=== PATIENT | male | born 1960 | race Caucasian/White ===

== ENCOUNTER 2017-12-29 12:55 | Inpatient (IN) | payer MEDICAID ==
[~2017-12-29] VITALS: Ht 175.3 cm; Wt 98.0 kg
[~2017-12-29 12:55] MED LIST: ASPI-621 PO; ATOR10TA PO; CARV6.2512 PO; ENAL2.5T32 PO; TICA90TA PO
[2017-12-29] MEDS ORDERED: SODIUM CHLORIDE FLUSH 10ML SYR IVF ONE (14:00)
[2017-12-29] MEDS ORDERED: ASPIRIN 81 MG TABLET CHEW PO ONE (14:04)
[2017-12-29] MEDS ORDERED: ASPIRIN 81 MG TABLET CHEW ONE (14:06)
[2017-12-29 14:29] LABS: BASOPHILS # (AUTO) 0.06 x10^3/uL (0-0.1); BASOPHILS % (AUTO) 1 % (0-1); EOSINOPHILS # (AUTO) 0.13 x10^3/uL (0-0.4); EOSINOPHILS % (AUTO) 1 % (1-7); LYMPHOCYTES # (AUTO) 1.55 x10^3/uL (1-3.4); LYMPHOCYTES % (AUTO) 12 % (22-44); MD NO; MEAN CORPUSCULAR HEMOGLOBIN 30.4 pg (27.5-34.5); MEAN CORPUSCULAR HGB CONC 33.3 g/dL (33.2-36.2); MEAN CORPUSCULAR VOLUME 91.1 fL (81-97); MEAN PLATELET VOLUME 9.2 fL (7.4-10.4); MONOCYTES # (AUTO) 0.89 x10^3/uL (0.2-0.8); MONOCYTES % (AUTO) 7 % (2-9); NEUTROPHILS # (AUTO) 10.17 x10^3/uL (1.8-6.8); NEUTROPHILS % (AUTO) 79 % (42-75); PLATELET COUNT 248 x10^3/uL (130-400); RED BLOOD COUNT 4.84 x10^6/uL (4.38-5.82); RED CELL DISTRIBUTION WIDTH 13.4 % (9.4-14.8)
[2017-12-29 14:41] LABS: ALANINE AMINOTRANSFERASE 33 U/L (12-78); ALBUMIN 3.4 g/dL (3.4-5.0); ANION GAP 9 mmol/L (5-15); CALCIUM 8.4 mg/dL (8.5-10.1); CHLORIDE 113 mmol/L (98-107); CREATININE 1.45 mg/dL (0.7-1.3)
[2017-12-29 14:46] LABS: ALKALINE PHOSPHATASE 93 U/L (45-117); BILIRUBIN,TOTAL 0.5 mg/dL (0.2-1.0); TOTAL PROTEIN 7.1 g/dL (6.4-8.2); TROPONIN I 0.082 ng/mL (0.000-0.045)
[2017-12-29] MEDS ORDERED: OMNIPAQUE 350 MG/ML, 100ML BOTTLE ONE (16:37)
[2017-12-29] MEDS ORDERED: HEPARIN 5,000 UNITS/ML, 1ML IV ONE (17:00)
[2017-12-29] MEDS ORDERED: HEPARIN 25,000 UNITS/500ML PMX 500 ML ONE (17:15)
[2017-12-29] MEDS ORDERED: HEPARIN 5,000 UNITS/ML, 1ML ONE (17:15)
[2017-12-29] MEDS: HEPARIN 25,000 UNITS/500ML PMX 500 ML IV PRN (17:22)
[2017-12-29] MEDS ORDERED: CETI10TA24 PO (18:01)
[2017-12-29] MEDS ORDERED: ONDANSETRON ODT 4 MG PO PRN (18:30)
[2017-12-29] MEDS ORDERED: BISACODYL 10 MG SUPP PR PRN (18:30)
[2017-12-29] MEDS ORDERED: DOCUSATE 100 MG CAPSULE PO PRN (18:30)
[2017-12-29] MEDS ORDERED: PROMETHAZINE 25 MG/ML, 1ML IM PRN (18:30)
[2017-12-29] MEDS ORDERED: morphine SULFATE 10 MG/ML, 1ML IVPush PRN (18:30)
[2017-12-29] MEDS ORDERED: OXYcodone IR 5MG TABLET PO PRN (18:30)
[2017-12-29] MEDS ORDERED: ONDANSETRON 2MG/ML, 2ML IVPush PRN (18:30)
[2017-12-29] MEDS ORDERED: POLYETHYLENE GLYCOL 17 GM PACKET PO PRN (18:30)
[2017-12-29] MEDS ORDERED: hydrALAzine 20 MG/ML, 1ML IVPush PRN (18:30)
[2017-12-29 18:57] VITALS: BP 135/99
[2017-12-29 19:25] LABS: HEMOGLOBIN A1C 5.7 % (4.2-6.3)
[2017-12-29 19:26] LABS: FREE T4 (FREE THYROXINE) 1.28 ng/dL (0.76-1.46); THYROID STIMULATING HORMONE 1.97 mIU/L (0.358-3.740)
[2017-12-29 19:38] LABS: MICROSCOPIC NOT IND
[2017-12-29 19:42] LABS: CULTURE INDICATED? NO
[2017-12-29] MEDS: SODIUM CHLORIDE 0.9% 1,000 ML IV SCH (21:51)
[2017-12-29] MEDS: ACETAMINOPHEN 325 MG TABLET PO PRN (22:42)
[2017-12-30] MEDS: HEPARIN 5,000 UNITS/ML, 1ML IV PRN ×4 (00:15→21:41)
[2017-12-30 00:53] VITALS: BP 137/85
[2017-12-30 00:54] VITALS: BP 137/85
[2017-12-30] MEDS: ASPIRIN 81 MG TABLET EC PO SCH (05:51)
[2017-12-30 06:32] LABS: BASOPHILS % (AUTO) 1 % (0-1); EOSINOPHILS # (AUTO) 0.26 x10^3/uL (0-0.4); EOSINOPHILS % (AUTO) 2 % (1-7); LYMPHOCYTES # (AUTO) 2.44 x10^3/uL (1-3.4); LYMPHOCYTES % (AUTO) 22 % (22-44); MD NO; MEAN CORPUSCULAR HEMOGLOBIN 30.4 pg (27.5-34.5); MEAN CORPUSCULAR HGB CONC 33.4 g/dL (33.2-36.2); MEAN CORPUSCULAR VOLUME 91.1 fL (81-97); MEAN PLATELET VOLUME 9.4 fL (7.4-10.4); MONOCYTES # (AUTO) 0.84 x10^3/uL (0.2-0.8); MONOCYTES % (AUTO) 8 % (2-9); NEUTROPHILS # (AUTO) 7.64 x10^3/uL (1.8-6.8); NEUTROPHILS % (AUTO) 68 % (42-75); PLATELET COUNT 258 x10^3/uL (130-400); RED BLOOD COUNT 4.83 x10^6/uL (4.38-5.82); RED CELL DISTRIBUTION WIDTH 13.2 % (9.4-14.8)
[2017-12-30 06:40] LABS: ALANINE AMINOTRANSFERASE 30 U/L (12-78); ALBUMIN 3.1 g/dL (3.4-5.0); ANION GAP 11 mmol/L (5-15); CALCIUM 8.1 mg/dL (8.5-10.1); CHLORIDE 112 mmol/L (98-107); CHOLESTEROL, TOTAL 126 mg/dL (140-239); CREATININE 1.37 mg/dL (0.7-1.3)
[2017-12-30 06:45] LABS: ALKALINE PHOSPHATASE 86 U/L (45-117); BILIRUBIN,TOTAL 0.6 mg/dL (0.2-1.0); CHOL/HDL RATIO 4.5; HDL CHOL % 22 % (26-37); HDL CHOLESTEROL (DIRECT) 28 mg/dL (40-60); LDL CHOLESTEROL,CALCULATED 76 mg/dL (54-169); LDL/HDL RATIO 2.7 (0.5-3.0); TOTAL PROTEIN 6.7 g/dL (6.4-8.2); TRIGLYCERIDES 109 mg/dL (50-200); TROPONIN I 0.048 ng/mL (0.000-0.045); VLDL CHOLESTEROL 22 mg/dL (0-25)
[2017-12-30 07:15] VITALS: BP 130/80
[2017-12-30] MEDS: SODIUM CHLORIDE 0.9% 1,000 ML IV SCH (08:42)
[2017-12-30] MEDS: CETIRIZINE 10 MG TABLET PO SCH (08:42)
[2017-12-30] MEDS: HEPARIN 25,000 UNITS/500ML PMX 500 ML IV PRN (14:24)
[2017-12-30 14:28] VITALS: BP 94/58
[2017-12-30 18:48] VITALS: BP 150/91
[2017-12-30] MEDS: ACETAMINOPHEN 325 MG TABLET PO PRN (19:40)
[2017-12-31 01:12] VITALS: BP 133/88
[2017-12-31 04:41] LABS: ANION GAP 7 mmol/L (5-15); CALCIUM 8.3 mg/dL (8.5-10.1); CHLORIDE 111 mmol/L (98-107); CREATININE 1.33 mg/dL (0.7-1.3)
[2017-12-31] MEDS: ASPIRIN 81 MG TABLET EC PO SCH (05:46)
[2017-12-31] MEDS: HEPARIN 25,000 UNITS/500ML PMX 500 ML IV PRN ×2 (07:19→23:35)
[2017-12-31 07:40] VITALS: BP 124/80
[2017-12-31] MEDS: CETIRIZINE 10 MG TABLET PO SCH (10:50)
[2017-12-31 13:55] VITALS: BP 136/78
[2017-12-31 19:41] VITALS: BP 155/93
[2017-12-31] MEDS: TEMAZEPAM 15 MG CAPSULE PO PRN (19:46)
[2018-01-01 00:41] VITALS: BP 125/78
[2018-01-01 05:19] LABS: ANION GAP 8 mmol/L (5-15); CALCIUM 8.4 mg/dL (8.5-10.1); CHLORIDE 111 mmol/L (98-107); CREATININE 1.35 mg/dL (0.7-1.3)
[2018-01-01] MEDS: ASPIRIN 81 MG TABLET EC PO SCH (05:39)
[2018-01-01] MEDS: HEPARIN 5,000 UNITS/ML, 1ML IV PRN (05:41)
[2018-01-01 06:50] VITALS: BP 145/84
[2018-01-01] MEDS: CETIRIZINE 10 MG TABLET PO SCH (09:04)
[2018-01-01 12:15] VITALS: BP 142/80
[2018-01-01 12:38] LABS: INTERNATIONAL NORMALIZED RATIO 1.1 (0.93-1.1); PROTHROMBIN TIME 11.4 Seconds (9.6-11.5)
[2018-01-01] MEDS: HEPARIN 25,000 UNITS/500ML PMX 500 ML IV PRN (14:20)
[2018-01-01] MEDS ORDERED: LOSA25TA2 PO (15:41)
[2018-01-01] MEDS ORDERED: APIX5TAB PO (15:41)
[2018-01-01] MEDS: LOSARTAN 25MG TABLET PO SCH (16:00)
[2018-01-01] MEDS: APIXABAN 5 MG TABLET PO SCH (16:00)
[2018-01-01] MEDS ORDERED: APIXABAN 5 MG TABLET ONE (16:13)
[2018-01-01] MEDS ORDERED: WARFARIN 7.5 MG TABLET PO-COUM ONE (18:00)
[2018-01-01 20:30] VITALS: BP 128/73
[2018-01-01] MEDS: TEMAZEPAM 15 MG CAPSULE PO PRN (20:59)
[2018-01-02 00:57] VITALS: BP 135/46
[2018-01-02 04:49] LABS: INTERNATIONAL NORMALIZED RATIO 1.08 (0.93-1.1); PROTHROMBIN TIME 11.2 Seconds (9.6-11.5)
[2018-01-02] MEDS: ASPIRIN 81 MG TABLET EC PO SCH (05:30)
[2018-01-02 07:00] VITALS: BP 130/74
[2018-01-02] MEDS: CETIRIZINE 10 MG TABLET PO SCH (09:40)
[2018-01-02] MEDS: APIXABAN 5 MG TABLET PO SCH (09:40)
[2018-01-02] MEDS: LOSARTAN 25MG TABLET PO SCH (09:40)
[2018-01-02] MEDS ORDERED: WARFARIN MODERAT DOSE PROTOCOL XX SCH (12:00)
[2018-01-02 13:30] VITALS: BP 134/88
== END 2018-01-02 15:30 | disposition home or self-care (01) | DRG 280 ==
LOC: ED 15:40 → EDIP 16:15 → 5SO 18:39 → DCLOUNGE 01-02 15:00
PROVIDERS: ADMIT Internal Medicine; ATTEND Internal Medicine
DX: I21.4 Non-ST elevation (NSTEMI) myocardial infarction (principal); J96.00 Acute respiratory failure, unspecified whether with hypoxia or hypercapnia; N17.0 Acute kidney failure with tubular necrosis; I26.02 Saddle embolus of pulmonary artery with acute cor pulmonale; F41.1 Generalized anxiety disorder; I07.1 Rheumatic tricuspid insufficiency; G47.30 Sleep apnea, unspecified; I10 Essential (primary) hypertension; I25.10 Atherosclerotic heart disease of native coronary artery without angina pectoris; Z79.82 Long term (current) use of aspirin; Z86.718 Personal history of other venous thrombosis and embolism; Z95.5 Presence of coronary angioplasty implant and graft; Z99.81 Dependence on supplemental oxygen
CPT/HCPCS: 36415; 71045; 71275; 80048; 80053; 80061; 81003; 83036; 83735; 84439; 84443; 84484; 85025; 85379; 85520; 85610; 87040; 93005; 93306; 96374; J1644; Q9967; J7030

== ENCOUNTER → 2018-03-13 | Outpatient (CLI) | payer MEDICAID ==
[~2018-03-13] MED LIST changes: +APIX5TAB PO; +CETI10TA24 PO; +LOSA25TA2 PO
== END | disposition home or self-care (01) ==
LOC: CFH 15:43
PROVIDERS: ATTEND Internal Medicine Cardiovascular Disease
DX: I51.7 Cardiomegaly (principal); I10 Essential (primary) hypertension; E78.5 Hyperlipidemia, unspecified; I21.9 Acute myocardial infarction, unspecified; I25.10 Atherosclerotic heart disease of native coronary artery without angina pectoris
CPT/HCPCS: 93306